=== PATIENT | female | born 1960 | race Caucasian/White ===

== ENCOUNTER 2018-02-20 09:35 | Emergency (ER) | payer MEDICAID ==
[~2018-02-20] VITALS: Ht 160 cm; Wt 78.0 kg
[2018-02-20] MEDS ORDERED: ATEN-42 PO (10:10)
[2018-02-20] MEDS ORDERED: METF-815 PO (10:10)
[2018-02-20] MEDS ORDERED: SODIUM CHLORIDE 0.9% 1,000 ML IV ONE (11:20)
[2018-02-20 12:07] LABS: BASOPHILS % 0.5 % (0.0-2.0); EOSINOPHILS % 2.7 % (0.0-5.0); HEMATOCRIT. 38.6 % (36.0-48.0); HEMOGLOBIN. 13.1 g/dL (12.0-16.0); LYMPHOCYTES % 32.3 % (20.0-50.0); MEAN CORPUSCULAR HEMOGLOBIN 30.5 pg (28.0-32.0); MEAN PLATELET VOLUME 8.5 fl (7.4-10.4); MONOCYTES % 6.7 % (2.0-8.0); NEUTROPHILS % 57.8 % (40.0-76.0); PLATELET 210 x1000/uL (130-400); RED BLOOD CELL COUNT 4.28 mill/uL (4.2-5.4); RED CELL DISTRIBUTION WIDTH 13.7 % (11.6-14.6)
[2018-02-20 12:08] LABS: PROTHROMBIN TIME 10.9 sec (9.4-11.6)
[2018-02-20 12:09] LABS: CHLORIDE 109 mEq/L (98-107)
[2018-02-20 13:56] LABS: CLARITY URINE CLEAR (CLEAR); COLOR URINE YELLOW (YELLOW); KETONES URINE NEGATIVE (NEGATIVE); LEUKOCYTE ESTERASE URINE NEGATIVE (NEGATIVE); NITRITE URINE NEGATIVE (NEGATIVE); OCCULT BLOOD URINE NEGATIVE (NEGATIVE); PH URINE 7.5 (4.5-8.0); PROTEIN URINE NEGATIVE (NEGATIVE); SPECIFIC GRAVITY URINE 1.018 (1.005-1.030); UROBILINOGEN URINE 0.2 E.U./dL (0.2-1.0)
[2018-02-20 14:51] VITALS: BP 118/67
== END 2018-02-20 14:52 | disposition home or self-care (01) ==
LOC: ER 10:19
DX: R42 Dizziness and giddiness (principal); E11.9 Type 2 diabetes mellitus without complications; I10 Essential (primary) hypertension; Z85.3 Personal history of malignant neoplasm of breast; Z90.10 Acquired absence of unspecified breast and nipple; Z90.49 Acquired absence of other specified parts of digestive tract
CPT/HCPCS: 36415; 70551; 71045; 80053; 81003; 82962; 83880; 84484; 85025; 85610; 93005; 96360; 99285; J7030

== ENCOUNTER → 2018-03-07 | Outpatient (CLI) | payer MEDICAID ==
[~2018-03-07] MED LIST: ATEN-42 PO; METF-815 PO
== END | disposition home or self-care (01) ==
LOC: NM 09:37
PROVIDERS: ATTEND Specialist
DX: D35.2 Benign neoplasm of pituitary gland (principal); C50.812 Malignant neoplasm of overlapping sites of left female breast; I10 Essential (primary) hypertension; K21.9 Gastro-esophageal reflux disease without esophagitis; K57.30 Diverticulosis of large intestine without perforation or abscess without bleeding; E11.9 Type 2 diabetes mellitus without complications
CPT/HCPCS: 70450; 78306; A9503

== ENCOUNTER → 2019-02-23 | Outpatient (CLI) | payer MEDICAID | END | disposition home or self-care (01) | LOC: NM 08:07 | PROVIDERS: ATTEND Specialist | DX: C50.919 Malignant neoplasm of unspecified site of unspecified female breast (principal); M12.88 Other specific arthropathies, not elsewhere classified, other specified site | CPT/HCPCS: 78306; A9503 ==

== ENCOUNTER → 2020-06-30 | Outpatient (CLI) | payer MEDICAID ==
[~2020-06-30] MED LIST changes: +REGADENOSON 0.4 MG/5 ML IV ONE
== END | disposition home or self-care (01) ==
LOC: NM 08:09
PROVIDERS: ATTEND Internal Medicine Cardiovascular Disease
DX: I10 Essential (primary) hypertension (principal); R07.9 Chest pain, unspecified; E11.9 Type 2 diabetes mellitus without complications; R94.31 Abnormal electrocardiogram [ECG] [EKG]
CPT/HCPCS: 78452; 93017; A9500; J2785

== ENCOUNTER 2021-08-02 08:15 | Emergency (ER) | payer MEDICAID ==
[~2021-08-02] VITALS: Ht 167.6 cm; Wt 70.0 kg
[~2021-08-02 08:15] MED LIST changes: -METF-815 PO; +METF-873 PO; -REGADENOSON 0.4 MG/5 ML IV ONE
[2021-08-02] MEDS ORDERED: ASPIRIN 325MG EC TABLET PO ONE (11:30)
[2021-08-02] MEDS ORDERED: KETOROLAC 60MG/2ML VIAL IM ONE (11:30)
[2021-08-02] MEDS ORDERED: KETOROLAC 30MG/ML VIAL IV ONE (14:30)
[2021-08-02 14:47] LABS: BASOPHILS % 0.5 % (0.0-2.0); EOSINOPHILS % 1.2 % (0.0-5.0); HEMATOCRIT. 36.4 % (36.0-48.0); HEMOGLOBIN. 12.4 g/dL (12.0-16.0); LYMPHOCYTES % 26.6 % (20.0-50.0); MEAN CORPUSCULAR HEMOGLOBIN 30.2 pg (28.0-32.0); MEAN CORPUSCULAR VOLUME 88.8 fL (81.0-99.0); MEAN PLATELET VOLUME 7.5 fl (7.4-10.4); NEUTROPHILS % 65.7 % (40.0-76.0); PLATELET 332 x1000/uL (130-400); RED BLOOD CELL COUNT 4.09 mill/uL (4.2-5.4); RED CELL DISTRIBUTION WIDTH 13.3 % (11.6-14.6)
[2021-08-02 14:53] LABS: CHLORIDE 106 mEq/L (98-107)
[2021-08-02 15:00] LABS: PHOSPHORUS 3.5 mg/dL (2.5-4.9)
[2021-08-02] MEDS ORDERED: TOPUD PO (15:48)
[2021-08-02] MEDS ORDERED: IBUP-2028 MT (15:49)
[2021-08-02 16:32] VITALS: BP 151/81
== END 2021-08-02 16:32 | disposition home or self-care (01) ==
LOC: ER 08:15
DX: R00.2 Palpitations (principal); R05.9 Cough, unspecified; R53.81 Other malaise; E11.9 Type 2 diabetes mellitus without complications; I10 Essential (primary) hypertension; Z90.49 Acquired absence of other specified parts of digestive tract; Z20.822 Contact with and (suspected) exposure to COVID-19
CPT/HCPCS: 36415; 71045; 80053; 83735; 83880; 84100; 84484; 85025; 87426; 93005; 96372; 96374; 99285; J1885